=== PATIENT | female | born 1975 | race Caucasian/White ===

== ENCOUNTER 2018-06-07 05:17 | Inpatient (IN) | payer OTHER ==
[2018-06-07] MEDS ORDERED: CITRIC ACID/SODIUM CITRATE 30 ML UNIT-DOSE CUP PO ONE (05:50)
[2018-06-07] MEDS ORDERED: ELECTROLYTE-148 SOLN 500 ML IV ONE ×2 (05:50→06:20)
[2018-06-07 05:59] VITALS: BMI 37.4
[2018-06-07] MEDS ORDERED: morphine SULFATE/Preservative Free 0.5 MG/ML (1cc Syringe) ONE (07:37)
--- NOTE | 2018-06-07 07:38 | HP ---
Admitting History and Physical - Admission Chief Complaint: prior cs for repeat History of Present Illness: 43 y/o with 2 prior cs for repeat, no issues prenatally, declines tubal ligation. 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: Alzheimer's, CVA, Dementia, Migraine, Multiple Sclerosis, Peripheral Neuropathy, Parkinson's, Seizure, Syncope, TIA, Vertigo, Other Cardiovascular: No: AFIB, Aneurysm, Aortic Insufficiency, Aortic Stenosis, CAD, CHF, Deep Vein Thrombosis, HTN, Hyperlipdemia, AL, Mitral Insufficiency, Mitral Stenosis, Murmur, Pulmonary Hypertension, Other Pulmonary: No: Asthma, Bronchitis, Cancer, COPD, O2 Dependent, Pneumonia, Previously Intubated, Pulmonary Embolus, Pulmonary Fibrosis, Sleep Apnea, Other Gastrointestinal: No: Ascites, Cancer, Constipation, Crohn's Disease, Diverticulitis, Diverticulosis, Esophageal Varices, Gastritis, GERD, GI Bleed, Hemorrhoids, Hiatal Hernia, Inflamatory Bowel Disease, Irritable Bowel Disease, Pancreatitis, Peptic Ulcer Disease, Ulcerative Colitis, Other Hepatobiliary: No: Cirrhosis, Cholelithiasis, Cholecystitis, Choledocholithiasis , Hepatitis A, Hepatitis B, Hepatitis C, Other Renal/: No: Renal Failure, Renal Inusuff, BPH, Cancer, Hematuria, Hemodialysis , Neurogenic Bladder, Renal Calculi, UTI, Other Reproductive: No: Ectopic , Endometriosis, Fibroids, PID, Polycystic Ovary Syndrome, Postmenopausal, Other ...: 3 ...Para: 2 Heme/Onc: No: Anemia, B12 Deficiency, Bleeding Disorder, Cancer, Current Chemotherapy, Current Radiation Therapy, Hemochromatosis, Hypercoaguable State, Myeloproliferative Synd, Sickle Cell Disease, Sickle Cell Trait, Thrombocytopenia, Other Infectious Disease: No: AIDS, C-Diff, Herpes Zoster, HIV, MRSA, STD's, Tuberculosis, VREF, Other Psych: No: Addictions, Anxiety, Bipolar, Depression, Panic, Psychosis, Schizophrenia, Other Musculoskeletal: No: Bursitis, Chronic low back pain, Hemiparesis, Hemiplegia, Osteoarthritis, Paraplegia, Other - Smoking History Smoking history: Never smoked Have you smoked in the past 12 months: No - Alcohol/Substance Use Hx Alcohol Use: No Home Medications - Allergies Allergies/Adverse Reactions: Allergies Allergy/AdvReac Type Severity Reaction Status Date / Time No Known Drug Allergies Allergy Verified 10/09/18 05:42 - Home Medications Home Medications: Ambulatory Orders Vit 108/Iron/Folic AC [ One Tablet] 1 each PO DAILY 06/07/18 Review of Systems - Review of Systems Constitutional: reports: No Symptoms Eyes: reports: No Symptoms HENT: reports: No Symptoms Neck: reports: No Symptoms Cardiovascular: reports: No Symptoms Respiratory: reports: No Symptoms Gastrointestinal: reports: No Symptoms Genitourinary: reports: No Symptoms Musculoskeletal: reports: No Symptoms Integumentary: reports: No Symptoms Neurological: reports: No Symptoms Endocrine: reports: No Symptoms Hematology/Lymphatic: reports: No Symptoms Physical Examination Vital Signs: Vital Signs Temperature 98.3 F 06/07/18 05:52 Pulse Rate 76 06/07/18 05:52 Respiratory Rate 20 06/07/18 05:52 Blood Pressure 143/66 06/07/18 05:52 O2 Sat by Pulse Oximetry (%) Constitutional: Yes: Well Nourished Eyes: Yes: WNL HENT: Yes: WNL Neck: Yes: WNL Cardiovascular: Yes: WNL Respiratory: Yes: WNL Gastrointestinal: Yes: WNL ...Rectal Exam: Yes: WNL Renal/: Yes: WNL Breast(s): Yes: WNL Musculoskeletal: Yes: WNL Extremities: Yes: WNL Assessment/Plan admit labs consents
[2018-06-07] MEDS ORDERED: METHYLERGONOVINE MALEATE 0.2 MG/1 ML AMP IM PRN (07:39)
[2018-06-07] MEDS ORDERED: IBUPROFEN 800 MG/8 ML IJ IVPB PRN (07:39)
[2018-06-07] MEDS ORDERED: ceFAZolin SODIUM 1 GM VIAL ONE (07:56)
[2018-06-07] MEDS ORDERED: OXYTOCIN 10 UNITS/ML VIAL ONE (08:04)
[2018-06-07] MEDS ORDERED: ONDANSETRON 4 MG/2 ML VIAL IVPUSH PRN (09:08)
[2018-06-07] MEDS ORDERED: OXYTOCIN 20 UNITS in 0.9% NS 20 UNIT/1,000 ML INFUS.BAG IV ONE (09:12)
[2018-06-07] MEDS: OXYTOCIN 20 UNITS in 0.9% NS 20 UNIT/1,000 ML INFUS.BAG IV SCH ×3 (09:15→22:08)
[2018-06-07] MEDS: FERROUS SO4 325 MG TABLET (FP) PO SCH ×2 (10:28→21:56)
[2018-06-08 07:27] LABS: BASO % 0.4 % (0-2.0); EOS % 0.1 % (0-4.5); HEMATOCRIT 40.7 % (32.4-45.2); HEMOGLOBIN 13.4 GM/dL (10.7-15.3); LYMPH % 6.7 % (8-40); MCH 30.9 pg (25.7-33.7); MEAN CELL VOLUME 93.4 fl (80-96); MEAN PLT VOLUME 9.4 fl (7.5-11.1); MONO % 6.4 % (3.8-10.2); NEUT % 86.4 % (42.8-82.8); PLATELET COUNT 154 K/MM3 (134-434); RBC 4.35 M/mm3 (3.60-5.2); RDW 13.1 % (11.6-15.6); WHITE BLOOD COUNT 12.9 K/mm3 (4.0-10.0)
[2018-06-08] MEDS ORDERED: BISACODYL 10 MG SUPP.RECT RC PRN (07:39)
[2018-06-08] MEDS ORDERED: DIPHTH,PERTUSS(ACELL),TET 0.5 ML DISP.SYRIN IM ONE (10:00)
[2018-06-08] MEDS: FERROUS SO4 325 MG TABLET (FP) PO SCH ×2 (10:24→21:11)
--- NOTE | 2018-06-08 10:45 | PN ---
Progress Note (short form) - Note Progress Note: Anesthesia POD#1 S/P under Spinal and DM VSS,no N/V,legs are strong,no pain. Estefania Jensen MD.
[2018-06-08] MEDS: IBUPROFEN 600 MG TABLET (FP) PO PRN (21:11)
[2018-06-08] MEDS: SIMETHICONE 80 MG TAB.CHEW (FP) PO PRN (21:11)
[2018-06-08] MEDS ORDERED: oxyCODONE HCL 5 MG TABLET PO PRN (23:45)
[2018-06-09] MEDS: ACETAMINOPHEN 325 MG TABLET (FP) PO PRN (06:47)
[2018-06-09] MEDS: SIMETHICONE 80 MG TAB.CHEW (FP) PO PRN (06:47)
[2018-06-09] MEDS: IBUPROFEN 600 MG TABLET (FP) PO PRN (06:49)
--- NOTE | 2018-06-09 07:43 | PN ---
Post Progress Note Type of Delivery: Repeat C/S Vital Signs: Vital Signs Temperature 98.7 F 06/08/18 22:00 Pulse Rate 75 06/08/18 22:00 Respiratory Rate 18 06/08/18 22:00 Blood Pressure 129/71 06/08/18 22:00 O2 Sat by Pulse Oximetry (%) 100 06/07/18 09:25 Uterus: Yes: Fundus Firm Incision: Yes: Dressing dry and intact Abdomen/GI: Yes: Abdomen soft Lochia: Yes: Rubra Extremities: Yes: Calves non-tender Perineum: Yes: Intact Activity: Ambulating - Labs Labs: CBC WBC 12.9 K/mm3 (4.0-10.0) H 06/08/18 06:30 RBC 4.35 M/mm3 (3.60-5.2) 06/08/18 06:30 Hgb 13.4 GM/dL (10.7-15.3) 06/08/18 06:30 Hct 40.7 % (32.4-45.2) 06/08/18 06:30 MCV 93.4 fl (80-96) 06/08/18 06:30 MCH 30.9 pg (25.7-33.7) 06/08/18 06:30 MCHC 33.0 g/dl (32.0-36.0) 06/08/18 06:30 RDW 13.1 % (11.6-15.6) 06/08/18 06:30 Plt Count 154 K/MM3 (134-434) 06/08/18 06:30 MPV 9.4 fl (7.5-11.1) 06/08/18 06:30 Absolute Neuts (auto) 11.2 K/mm3 (1.5-8.0) H 06/08/18 06:30 Neutrophils % 86.4 % (42.8-82.8) H 06/08/18 06:30 Lymphocytes % 6.7 % (8-40) L D 06/08/18 06:30 Monocytes % 6.4 % (3.8-10.2) 06/08/18 06:30 Eosinophils % 0.1 % (0-4.5) 06/08/18 06:30 Basophils % 0.4 % (0-2.0) 06/08/18 06:30 Nucleated RBC % 0 % (0-0) 06/08/18 06:30 Assessment/Plan 43yo s/p RLTCS, POD#2 -Routine PP care -OOB, ambulate -Po Pain control -Labs reviewed, wnl -Anticipate d/c to home by POD#4 Maldonado Patel MD
[2018-06-09] MEDS: FERROUS SO4 325 MG TABLET (FP) PO SCH ×2 (10:28→21:26)
[2018-06-10] MEDS: ACETAMINOPHEN 325 MG TABLET (FP) PO PRN (01:25)
[2018-06-10] MEDS: IBUPROFEN 600 MG TABLET (FP) PO PRN (01:26)
[2018-06-10 07:48] LABS: BASO % 0.7 % (0-2.0); EOS % 2.5 % (0-4.5); HEMATOCRIT 38.4 % (32.4-45.2); HEMOGLOBIN 12.7 GM/dL (10.7-15.3); LYMPH % 17.6 % (8-40); MCH 30.7 pg (25.7-33.7); MCHC 33.1 g/dl (32.0-36.0); MEAN CELL VOLUME 92.9 fl (80-96); MEAN PLT VOLUME 9.1 fl (7.5-11.1); MONO % 8.3 % (3.8-10.2); NEUT % 70.9 % (42.8-82.8); PLATELET COUNT 194 K/MM3 (134-434); RBC 4.13 M/mm3 (3.60-5.2); RDW 13.4 % (11.6-15.6); WHITE BLOOD COUNT 7.6 K/mm3 (4.0-10.0)
[2018-06-10] MEDS: FERROUS SO4 325 MG TABLET (FP) PO SCH ×2 (09:52→21:59)
--- NOTE | 2018-06-11 01:53 | PN ---
Post Progress Note Post Day: 4 Type of Delivery: Repeat C/S Vital Signs: Vital Signs Temperature 97.5 F L 06/10/18 22:00 Pulse Rate 64 06/10/18 22:00 Respiratory Rate 20 06/10/18 22:00 Blood Pressure 125/68 06/10/18 22:00 O2 Sat by Pulse Oximetry (%) 100 06/07/18 09:25 Uterus: Yes: Fundus Firm Abdomen/GI: Yes: Abdomen soft Lochia: Yes: Rubra Lochia, amount: Small Extremities: Yes: Calves non-tender Perineum: Yes: Intact Activity: Ambulating - Labs Labs: CBC WBC 7.6 K/mm3 (4.0-10.0) 06/10/18 07:00 RBC 4.13 M/mm3 (3.60-5.2) 06/10/18 07:00 Hgb 12.7 GM/dL (10.7-15.3) 06/10/18 07:00 Hct 38.4 % (32.4-45.2) 06/10/18 07:00 MCV 92.9 fl (80-96) 06/10/18 07:00 MCH 30.7 pg (25.7-33.7) 06/10/18 07:00 MCHC 33.1 g/dl (32.0-36.0) 06/10/18 07:00 RDW 13.4 % (11.6-15.6) 06/10/18 07:00 Plt Count 194 K/MM3 (134-434) D 06/10/18 07:00 MPV 9.1 fl (7.5-11.1) 06/10/18 07:00 Absolute Neuts (auto) 5.4 K/mm3 (1.5-8.0) 06/10/18 07:00 Neutrophils % 70.9 % (42.8-82.8) 06/10/18 07:00 Lymphocytes % 17.6 % (8-40) D 06/10/18 07:00 Monocytes % 8.3 % (3.8-10.2) 06/10/18 07:00 Eosinophils % 2.5 % (0-4.5) D 06/10/18 07:00 Basophils % 0.7 % (0-2.0) 06/10/18 07:00 Nucleated RBC % 0 % (0-0) 06/10/18 07:00 Assessment/Plan as above dc home today
[2018-06-11 08:26] VITALS: BP 130/77; PULSE 70; TEMP 97.8
[2018-06-11] MEDS: FERROUS SO4 325 MG TABLET (FP) PO SCH (09:15)
--- NOTE | 2018-06-13 17:12 | PATH ---
Surgical Pathology Report Patient Name: TIFFANIE HERRERA Med. Rec. 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 Specimen(s) Received PLACENTA Clinical History The , 39 weeks Exposed to TB in the past Final Diagnosis PLACENTA: THIRD TRIMESTER PLACENTA. TRIVASCULAR CORD. MEMBRANES WITH NO DIAGNOSTIC ABNORMALITIES. Electronically Signed Qing Peralta M.D. Gross Description The specimen is received fresh labeled placenta and is a 368 gram, 15.0 x 14.5 x 2.4 cm. placenta with attached membranes and umbilical cord. The attached membranes are blum, translucent with focal opacities and insert marginally. The umbilical cord measures 26 cm. in length and averages 1.1 cm. in diameter. The cord inserts eccentrically, 3 cm. to the nearest margin. No true knots or strictures are identified. Cut surface of the umbilical cord reveals 3 vessels. The surface is austin-blue with minimal fibrin deposition and appropriate caliber vessels. The maternal surface is red-brown with focal defects. Sectioning reveals red-brown, spongy parenchyma. No lesions are identified. Chemical Weigher sections are submitted in three cassettes as follows: 1- membrane rolls and umbilical cord; 2-3- full thickness sections of placenta. /06/10/2018 saudi06/10/2018
== END 2018-06-11 17:00 | disposition home or self-care (01) | DRG 540 ==
LOC: JLDR 05:17 → J3W 10:12
PROVIDERS: ADMIT Obstetrics & Gynecology; ATTEND Obstetrics & Gynecology
PROC: 10D00Z1 Extraction of Products of Conception, Low, Open Approach (ICD-10-PCS; principal; 2018-06-07)
DX: O34.211 Maternal care for low transverse scar from previous cesarean delivery (principal); Z3A.39 39 weeks gestation of pregnancy; Z37.0 Single live birth
CPT/HCPCS: 36415; 71046-TC-FY; 85025; 88307-TC; 90686; 90715; G0008